=== PATIENT | female | born 1970 | race Two or more races ===

== ENCOUNTER 2024-08-16 18:22 | Emergency (ER) | payer MEDICAID, SELFPAY ==
[2024-08-16 18:47] VITALS: BP 133/77; PULSE 96; RESP 18; TEMP 36.7; O2SAT 99; BMI 37.0
--- NOTE | 2024-08-16 18:51 | EKG_ITS ---
[facility] Test Date: 2024-08-16 Pat Name: DANA TANNER Department: Room: - Gender: Female Chronic Specialist: : 1970 Requested By: Shyam Sheets Order Number: [id number] Reading MD: Shyam Sheets Measurements Intervals [place] Rate: 89 P: 59 ME: 208 QRS: 60 QRSD: 90 T: 53 QT: 388 QTc: 474 Interpretive Statements SINUS RHYTHM Compared to ECG 01/12/2022 17:44:19 No significant changes /store/S0/[id number].pdf
--- NOTE | 2024-08-16 18:52 | PD.EDRME ---
Rapid Medical Screening Exam RME Arrival date/time: 08/16/24 18:22 54-year-old female reports with complaints of weakness for several weeks Chief Complaint: Chest Pain Time Seen by Provider: 08/16/24 18:36 Vital signs: Vital Signs Temperature 98.1 F 08/16/24 18:47 Pulse Rate 96 08/16/24 18:47 Respiratory Rate 18 08/16/24 18:47 Blood Pressure 133/77 H 08/16/24 18:47 Pulse Oximetry (%) 99 08/16/24 18:47 Oxygen Delivery Method Room Air 08/16/24 18:47
--- NOTE | 2024-08-16 19:17 | PD.EDRME ---
Rapid Medical Screening Exam RME Arrival date/time: 08/16/24 18:22 08/16/24 18:22 54-year-old female reports with complaints of weakness for several weeks Chief Complaint: Chest Pain Time Seen by Provider: 08/16/24 18:36 Vital signs: Vital Signs Temperature 98.1 F 08/16/24 18:47 Pulse Rate 96 08/16/24 18:47 Respiratory Rate 18 08/16/24 18:47 Blood Pressure 133/77 H 08/16/24 18:47 Pulse Oximetry (%) 99 08/16/24 18:47 Oxygen Delivery Method Room Air 08/16/24 18:47 RME Narrative: 08/16/24 18:22 54-year-old female reports with complaints of weakness for several weeks
[2024-08-16 19:46] LABS: Basophils # (Auto) 0.1 Thou/mm3 (0.0-0.2); Basophils % (Auto) 1 % (0-2.5); Eosinophils # (Auto) 0.2 Thou/mm3 (0.0-0.5); Eosinophils % (Auto) 2 % (0-10); Hemoglobin 13.7 g/dL (12.0-16.0); Immature Granulocytes % (Auto) 1 % (0-0); Immature Granulocytes Auto 0.06 Thou/mm3 (0.00-0.00); Lymphocytes # (Auto) 4.6 Thou/mm3 (1.0-4.8); Lymphocytes % (Auto) 35 % (10-50); Mean Corpuscular HGB Conc 34.3 g/dl (31.0-37.0); Mean Corpuscular Hemoglobin 31.7 pg (25.0-35.0); Mean Corpuscular Volume 93 fL (80-100); Monocytes # (Auto) 1.1 Thou/mm3 (0.0-0.8); Monocytes % (Auto) 8 % (0-12); Neutrophils # (Auto) 7.1 Thou/mm3 (1.8-7.7); Neutrophils % (Auto) 54 % (37-80); Nucleated Red Blood Cell % 0 /100 WBC (0); Platelet Count 289 Thou/mm3 (140-440); RDW Standard Deviation 48.8 fL (36.4-46.3); Red Blood Count 4.32 Miln/mm3 (4.00-5.20); White Blood Count 13.1 Thou/mm3 (3.6-11.0)
[2024-08-16 20:07] LABS: B-Type Natriuretic Peptide 23 pg/mL (0-100)
[2024-08-16 20:22] LABS: Alanine Aminotransferase 14 U/L (10-49); Albumin, Serum 4.8 gm/dL (3.5-5.0); Albumin/Globulin Ratio 1.6 (1.2-2.2); Alkaline Phosphatase 77 U/L (46-116); Anion Gap 6 (7-16); Aspartate Amino Transferase 20 U/L (0-34); BUN/Creatinine Ratio 16 Ratio (12-20); Bilirubin,Total 0.3 mg/dL (0.3-1.2); Blood Urea Nitrogen 16 mg/dL (9-23); Calcium 9.9 mg/dL (8.3-10.6); Calcium (Corrected) 9.9 mg/dL (8.5-10.1); Carbon Dioxide 26.6 mMol/L (20.0-31.0); Chloride 101 mMol/L (98-107); Estimated Creatinine Clearance 61.3 mL/min (>60); Glucose 210 mg/dL (74-106); Osmolality,Calculated 275 (275-295); Potassium 3.4 mMol/L (3.4-5.1); Sodium 134 mMol/L (136-145); Thyroid Stimulating Hormone 1.32 uIU/mL (0.55-4.78); Total Protein 7.8 gm/dL (5.7-8.2); Troponin I < 0.020 ng/mL (0.0-0.045); eGFR > 60 See Note
[2024-08-16 21:55] LABS: Free T3 3.2 pg/mL (2.3-4.2)
[2024-08-16 22:03] LABS: Collection Type, Urine Clean Catch
[2024-08-16 22:23] LABS: Bilirubin,Urine Negative (Negative); Blood,Urine Negative (Negative); Clarity,Urine Clear (Clear/Hazy); Color,Urine Yellow (Lt Yel-Yel); Culture Indicated,Urine Not Indicated; Glucose, Urine Negative (Negative); Ketones,Urine Trace (Negative); Leukocyte Esterase,Urine Positive (Negative); Nitrite,Urine Negative (Negative); Protein,Urine Trace (Neg - Trace); RBC,Urine 3 /hpf (0-3); Specific Gravity,Urine 1.028 (1.001-1.035); Squamous Epithelial Cell,Urine 3 /hpf (0-5); WBC,Urine 1 /hpf (0-5)
--- NOTE | 2024-08-16 23:41 | EDNOTE_ITS ---
ED General RME/HPI General Chief complaint: Chest Pain Stated complaint: CHEST DISCOMORT, DISORIENTED, WEAKNESS, DIZZINESS Time Seen by Provider: 08/16/24 18:36 Arrival date/time: 08/16/24 18:22 RME / HPI RME / HPI narrative: 08/16/24 18:22 54-year-old female reports with complaints of weakness for several weeks ------ Dr. Sotomayor?s Main ED Evaluation: 54yo female presents to the ED for a chief complaint of generalized weakness x 1730. Patient states she started feeling generally weak at 1730, reporting she was having difficulty ambulating. She states she felt dizzy, describing it as feeling drunk . She reports associated nausea and shortness of breath. She denies any vomiting, numbness, tingling or any other associated symptoms. No known allergies. Patient states she has experienced similar symptoms in the past. Related Data Previous Rx's ?Medication ?Instructions ?Recorded meclizine 25 mg tablet 25 mg PO BID PRN dizziness # 30 tabs 01/12/22 meclizine 25 mg tablet 25 mg PO QID PRN Vertigo #20 tabs 08/16/24 Allergies Allergy/AdvReac Type Severity Reaction Status Date / Time NKA* Allergy Uncoded 09/01/21 16:35 Review of Systems Review of Systems Systems Reviewed: All systems reviewed, normal except as documented Past Medical History Past Medical History CARDIAC: Positive Hypercholesterolemia and Hypertension; Negative Congestive Heart Failure RESPIRATORY: Negative Chronic Obstructive Pulmonary Disease (COPD) GENITOURINARY: Negative Renal Disease ENDOCRINE: Positive Hyperthyroidism; Negative Diabetes Mellitus Type 1 or Diabetes Mellitus Type 2 PSYCHO/SOCIAL: Positive Anxiety Surgical History SURGICAL: Positive Tubal Ligation Social History SMOKING STATUS: Heavy (> 1 pack/day) ED Exam Narrative Physical exam: GENERAL APPEARANCE: alert and oriented x 4, well-developed, well-nourished, no acute distress VITALS: All vitals were reviewed and the pulse ox is 99% on room air, which is normal according to my interpretation. HEENT: Normocephalic, atraumatic; horizontal nystagmus that worsens with positional changes, pupils equal, round, reactive to light; EOMI; mucous membranes pink, moist; oropharynx clear NECK: Supple LUNGS: CTABL; no wheezes, no rales, no rhonchi HEART: Regular rate, regular rhythm; normal S1, S2; no murmurs ABDOMEN: non distended; normal BS; soft, no tenderness, no guarding, no rebound; no masses, no organomegaly, no hernia BACK: no CVA tenderness EXTREMITIES: atraumatic; no edema NEUROLOGIC: awake; alert and oriented x4; cranial nerves II-XII grossly intact; no focal sensory or motor deficits PSYCHIATRIC: appropriate mood and affect SKIN: warm, dry, normal color; no rashes Course Quality Measures none Orders Category Date Time Status Bedside COVID-19 Antigen Test NOW Care 08/16/24 18:51 Completed Bedside Influenza A&B Antigen Test NOW Care 08/16/24 18:51 Completed EKG (ED ONLY) *Do not use* NOW Care 08/16/24 18:51 Completed EKG (ED Only) Stat Exams 08/16/24 18:51 Draft BNP [B-Type Natriuretic Peptide] Stat Lab 08/16/24 19:34 Completed CBC Stat Lab 08/16/24 19:34 Completed CMP [Comprehensive Metabolic Panel] Stat Lab 08/16/24 19:34 Completed Free T3 Stat Lab 08/16/24 19:34 Completed TSH [Thyroid Stimulating Hormone] Stat Lab 08/16/24 19:34 Completed Troponin I Stat Lab 08/16/24 19:34 Completed UA, C/S IF [Urinalysis, C/S if Indicated] Stat Lab 08/16/24 21:49 Completed Meclizine HCl [Antivert] Med 08/16/24 23:41 Discontinued 25 mg PO X1 ONE Vital Signs Vital signs: Vital Signs Temperature 98.1 F 08/16/24 18:47 Pulse Rate 96 08/16/24 18:47 Respiratory Rate 18 08/16/24 18:47 Blood Pressure 133/77 H 08/16/24 18:47 Pulse Oximetry (%) 99 08/16/24 18:47 Oxygen Delivery Method Room Air 08/16/24 18:47 [facility] Patient data External records reviewed:: [facility] previous records (Per chart review, patient was seen here on 01/12/22 for dizziness.) Clinical information provided by:: patient Social determinants that could affect healthcare access:: none Patient has the following chronic illnesses:: HTN, HLD How is presenting disease/condition affected by chronic disease/condition?: u neffected by Evaluation data The following diagnostics were reviewed and interpreted by me:: lab results and EKG tracing(s) Lab and/or radiology exams considered but not ordered:: none Interpretation Summary: WBC count is 13.1, Glucose is 210, troponin is normal, BNP is normal, UA is unremarkable, according to my interpretation. EKG done at 1901, NSR, rate of 89, normal axis, no ectopy, no acute ischemia, according to my interpretation. Medications Medications considered but not ordered:: none Medication administrations:: Medication Administration History Discontinued Medications Meclizine HCl (Meclizine Hcl 25 Mg Tablet) 25 mg PO X1 ONE Stop: 08/16/24 23:42 Last Admin: 08/16/24 23:52 Dose: 25 mg Documented By: KF see above Consultations Consultation(s) initiated? (list below): No Diagnosis Differential Diagnosis ED Complaint MDM: peripheral vertigo, central vertigo, anemia, electrolyte abnormality Most likely diagnosis given after review of the tests above:: vertigo Admission Indicated Admission indicated?: not indicated Explain why admission is indicated or not indicated:: Admission criteria not met. Admission Request Was there a request for admission?: No Disposition Plan Disposition Plan: Discharge Discharge Attestation Discharge Attestation: The patient and all family members were given an opportunity to ask questions and understood the discharge instructions. Discharge instructions specifically effects, indications for sooner follow up or return to the emergency department, and the expected course of current diagnosis. Patient condition: Stable Medical Decision Making MDM Narrative MDM Narrative: Scribe Attestation: 08/16/24 - Karo Lawson am scribing for and in the presence of Dr. Sotomayor. Differential Diagnosis Differential Diagnosis: peripheral vertigo, central vertigo, anemia, electrolyte abnormality Lab Data 08/16/24 19:34 08/16/24 19:34 Labs: Lab Results 08/16/24 08/16/24 Range/Units 19:34 21:49 WBC 13.1 H (3.6-11.0) Thou/mm3 RBC 4.32 (4.00-5.20) Miln/mm3 Hgb 13.7 (12.0-16.0) g/dL Hct 40.0 (36.0-46.0) % MCV 93 (80-100) fL MCH 31.7 (25.0-35.0) pg MCHC 34.3 (31.0-37.0) g/dl RDW Std Deviation 48.8 H (36.4-46.3) fL Plt Count 289 (140-440) Thou/mm3 Neut % (Auto) 54 (37-80) % Lymph % (Auto) 35 (10-50) % [place] % (Auto) 8 (0-12) % Eos % (Auto) 2 (0-10) % Baso % (Auto) 1 (0-2.5) % Neut # (Auto) 7.1 (1.8-7.7) Thou/mm3 Lymph # (Auto) 4.6 (1.0-4.8) Thou/mm3 [place] # (Auto) 1.1 H (0.0-0.8) Thou/mm3 Eos # (Auto) 0.2 (0.0-0.5) Thou/mm3 Baso # (Auto) 0.1 (0.0-0.2) Thou/mm3 Immature Gran # (Auto) 0.06 H (0.00-0.00) Thou/mm3 Absolute Nucleated RBC 0.00 (0.00-0.00) Thou/mm3 Immature Gran % 1 H (0-0) % Nucleated RBC % 0 (0) /100 WBC Sodium 134 L (136-145) mMol/L Potassium 3.4 (3.4-5.1) mMol/L Chloride 101 (98-107) mMol/L Carbon Dioxide 26.6 (20.0-31.0) mMol/L Anion Gap 6 L (7-16) BUN 16 (9-23) mg/dL Creatinine 1.0 (0.6-1.3) mg/dL Estim Creat Clear Calc 61.3 (>60) mL/min eGFR > 60 (60 - ) See Note BUN/Creatinine Ratio 16 (12-20) Ratio Glucose 210 H (74-106) mg/dL Calculated Osmolality 275 (275-295) Calcium 9.9 (8.3-10.6) mg/dL Corrected Calcium 9.9 (8.5-10.1) mg/dL Total Bilirubin 0.3 (0.3-1.2) mg/dL AST 20 (0-34) U/L ALT 14 (10-49) U/L Alkaline Phosphatase 77 (46-116) U/L Troponin I < 0.020 (0.0-0.045) ng/mL B-Natriuretic Peptide 23 (0-100) pg/mL Total Protein 7.8 (5.7-8.2) gm/dL Albumin 4.8 (3.5-5.0) gm/dL Globulin 3.0 (2.3-3.5) gm/dL Albumin/Globulin Ratio 1.6 (1.2-2.2) TSH 1.32 (0.55-4.78) uIU/mL Free T3 pg/dL 3.2 (2.3-4.2) pg/mL Ur Collection Type Clean Catch Urine Color Yellow (Lt Yel-Yel) Urine Clarity Clear (Clear/Hazy) Urine pH 7.0 (5.0-7.0) Ur Specific [place] 1.028 (1.001-1.035) Urine Protein Trace (Neg - Trace) Urine Glucose (UA) Negative (Negative) Urine Ketones Trace (Negative) Urine Blood Negative (Negative) Urine Nitrite Negative (Negative) Urine Bilirubin Negative (Negative) Urine Urobilinogen (Auto) 4.0 (0.0-1.0) mg/dL Ur Leukocyte Esterase Positive (Negative) Urine RBC 3 (0-3) /hpf Urine WBC 1 (0-5) /hpf Ur Squamous Epith Cells 3 (0-5) /hpf Urine Bacteria None (None) Ur Culture Indicated? Not Indicated Discharge Plan Plan Patient Disposition: HOME (Self Care) Prescriptions/Referrals Prescriptions/Med Rec: New meclizine 25 mg tablet 25 mg PO QID PRN (Reason: Vertigo) Qty: 20 0RF No Action meclizine 25 mg tablet 25 mg PO BID PRN (Reason: dizziness) Qty: 30 0RF Referrals: Ollie Peralta MD [Primary Care Provider] - In 1 week Problem List Clinical Impression: Episodic peripheral vertigo Patient/Caregiver Discharge Instructions Discharge Activity: activity as tolerated Education Materials: Anatomy of the Inner Ear, Vertigo Medicine Tx, Dizziness Vertigo and Balance ... Additional Instructions: You should follow-up with your primary care doctor within the next several days. As always, please return to the emergency department right away if you are not improving within the next 48 hours or if you find yourself worsening in any way and we will help you. There is a medicine called markos waiting for you at your pharmacy. You can take 1 tab up to 4 times a day for this dizzy feeling. Print Language: Gambian Stand Alone Forms: Sarah Award Info., Patient Portal Info Letter
[2024-08-16] MEDS: MECLIZINE HCL 25 MG TABLET PO (23:52)
[2024-08-16 23:56] VITALS: RESP 18
== END 2024-08-16 23:56 | disposition home or self-care (01) ==
PROVIDERS: Physician Assistant; Emergency Provider Emergency Medicine; PCP Family Medicine
DX: H81.399 Other peripheral vertigo, unspecified ear (principal); I10 Essential (primary) hypertension; F17.210 Nicotine dependence, cigarettes, uncomplicated
CPT/HCPCS: 36415; 80053; 81001; 83880; 84443; 84481; 84484; 85025; 87400; 87811; 93005; 99283; A9270